=== PATIENT | male | born 1975 | race Asian ===

== ENCOUNTER 2023-04-08 10:31 | Emergency (ER) | payer BC ==
[2023-04-08] MEDS ORDERED: oxyCODONE 5 MG TABLET PO STA (11:02)
[2023-04-08] MEDS ORDERED: fentaNYL 100 MCG/2 ML VIAL IVP PRN (11:35)
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
[2023-04-08] MEDS ORDERED: ONDANSETRON 4 MG/2 ML VIAL IVP STA (11:55)
[2023-04-08] MEDS ORDERED: PROPOFOL 200 MG/20 ML VIAL IVP STA (11:56)
[2023-04-08 12:25] LABS: BASOPHILS % (AUTO) 0.3 %; EOSINOPHILS % (AUTO) 0.2 %; HCT - HEMATOCRIT 45.5 % (42.0-52.0); HGB - HEMOGLOBIN 14.6 g/dL (14.0-18.0); LYMPHOCYTES # (AUTO) 1.2 10^3/uL (1.5-3.5); LYMPHOCYTES % (AUTO) 9.1 %; MEAN CORPUSCULAR HGB CONC 32.1 g/dL (32.0-36.0); MEAN CORPUSCULAR VOLUME 90.5 fL (80.0-94.0); MEAN PLATELET VOLUME 8.4 fL (7.4-11.4); MONOCYTES # (AUTO) 0.7 10^3/uL (0.0-1.0); MONOCYTES % (AUTO) 5.3 %; NEUTROPHILS # (AUTO) 10.8 10^3/uL (1.5-6.6); NEUTROPHILS % (AUTO) 84.3 %; PLT - PLATELET COUNT 258 10^3/uL (130-450); RED BLOOD COUNT 5.03 10^6/uL (4.70-6.10); RED CELL DISTRIBUTION WIDTH 13.1 % (12.0-15.0); WHITE BLOOD COUNT 12.8 x10^3/uL (4.8-10.8)
[2023-04-08 12:39] LABS: ALBUMIN 4.7 g/dL (3.2-5.5); ALBUMIN/GLOBULIN RATIO 1.3 (1.0-2.2); BILIRUBIN,TOTAL 0.4 mg/dL (0.2-1.0); CALCIUM 9.3 mg/dL (8.5-10.3); CREATININE 0.7 mg/dL (0.6-1.2); TOTAL PROTEIN 8.4 g/dL (6.7-8.2)
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
--- NOTE | 2023-04-08 12:53 | XRAY Report ---
PROCEDURE: Shoulder 2 View LT INDICATIONS: POST REDUCTION TECHNIQUE: 2 views of the shoulder were acquired. COMPARISON: None. FINDINGS: Bones: Appropriate alignment of the shoulder, status post reduction. Hill-Sachs deformity of the hum eral head. Soft tissues: No suspicious soft tissue calcifications. IMPRESSION: Interval reduction with appropriate alignment, with Hill-Sachs fracture. Reviewed by: Rajan Bennett on 04/08/2023 12:51 PM PDT Approved by: Rajan Bennett on 04/08/2023 12:51 PM PDT Station ID: [id number]
[2023-04-08 14:19] VITALS: BP 118/60
== END 2023-04-08 14:11 | disposition home or self-care (01) ==
LOC: ED 10:31
DX: S43.085A Other dislocation of left shoulder joint, initial encounter (principal); V00.131A Fall from skateboard, initial encounter; Y93.51 Activity, roller skating (inline) and skateboarding
CPT/HCPCS: 23650; 36415; 73030; 73080; 80053; 83690; 85025; 96374; 96375; 99152; 99283; 99285; A9270; 94770